=== PATIENT | female | born 1955 | race Caucasian/White ===

== ENCOUNTER → 2016-07-29 | Outpatient (CLI) | payer OTHER ==
[~2016-07-29] MED LIST: ALPRAZOLAM1 MG PO; AMPHETAMINE SAL PO; B COMPLEX1 CA1 PO; EC-NAPROSYN500 MG PO; EFFEXOR XR150 MG PO; FISH OIL 1,001000 M1 PO; HYDROCODONE PO; KLONOPIN PO; LEXAPRO PO; MEDROL PO; MOBIC PO; OMEPRAZOLE40 M1 PO; PRILOSEC PO; PRILOSEC20 M1 PO; ROBAXIN 750750 M1 DOB; STRATTERA40 MG DOB; TRAZODONE PO; TUDORZA PRESS400 MCG IH; VITAMIN B12-FO1 EACH PO; VITAMIN D2000 UNIT PO; VOLTAREN50 MG PO
--- NOTE | ~2016-07-29 | CR150 ---
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 Referring Physician: Kaylyn Anaya A.P.R.N. Ordering Physician: Kaylyn Anaya A.P.R.N. Primary Care Physician: Kaylyn Anaya A.P.R.N. MEDICAL IMAGING REPORT This report is preliminary unless electronic signature is present. EXAM Left hip 2 views 07/29/2016 HISTORY Left hip pain for 2 weeks with no known injury. FINDINGS AP and oblique examination of the hip shows adequate mineralization of the bones and a normal anatomic relationship of the femoral head with the acetabulum. There are no hypertrophic changes, fractures, dislocation, or joint capsular distension. No radiopaque foreign body is present about the soft tissues of the hip. IMPRESSION Normal hip. Dictated by... Trevor Leyva M.D. THIS IS AN ELECTRONICALLY VERIFIED REPORT Trevor Leyva M.D. at 07/31/2016 8:02 AM OJ/lolita TD: 07/30/2016 08:34 JOB #: [id number] MEDICAL IMAGING REPORT Page 1 of 1
--- NOTE | ~2016-07-29 | US140 ---
[facility] A Service of 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 Referring Physician: Kaylyn Anaya A.P.R.N. Ordering Physician: Kaylyn Anaya A.P.R.N. Primary Care Physician: Kaylyn Anaya A.P.R.N. MEDICAL IMAGING REPORT This report is preliminary unless electronic signature is present. EXAM Left lower extremity venous duplex, 07/29/2016 HISTORY Left leg pain and tenderness for 3 weeks. No known injury. Evaluate for deep vein thrombosis. TECHNIQUE Venous ultrasound examination of the left lower extremity was performed using grayscale, spectral Doppler and color flow Doppler imaging. FINDINGS The examination is negative. There is no evidence of left lower extremity deep venous thrombus from the groin to the lower calf. Visualized greater saphenous vein is also patent. IMPRESSION Negative examination. No evidence of left lower extremity deep venous thrombosis. Dictated by... Trevor Leyva M.D. THIS IS AN ELECTRONICALLY VERIFIED REPORT Trevor Leyva M.D. at 07/30/2016 8:01 AM OJ/angus TD: 07/29/2016 22:30 JOB #: [id number] [facility] A Service of [facility] RADIOLOGY TEXT RESULTS PATIENT: GOLD HARO LOCATION: SNIV : 57 UNIT #: [id number] AGE: [address]: Kaylyn Anaya SEX: F ORDER DR: MEDICAL IMAGING REPORT Page 1 of 1
--- NOTE | ~2016-07-29 | CR58 ---
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 Referring Physician: Kaylyn Anaya A.P.R.N. Ordering Physician: Kaylyn Anaya A.P.R.N. Primary Care Physician: Kaylyn Anaya A.P.R.N. MEDICAL IMAGING REPORT This report is preliminary unless electronic signature is present. EXAM Cervical spine 5 views 07/29/2016 HISTORY Neck pain left side for 2 weeks with no known injury. FINDINGS 5 views of the cervical spine demonstrate no fracture. There is post surgical or congenital fusion of the C5 and C6 vertebral bodies. There is 2 mm anterolisthesis of C4 on C5. There is degenerative change with moderate disc space narrowing at C6-7 with anterior and posterior osteophytes at the C6-7 level and there is degenerative change involving the articular facets. There is no retropharyngeal soft tissue swelling. IMPRESSION 1. Fusion of the C5 and C6 vertebral bodies which is either congenital or postsurgical in nature. Correlation with patient history is suggested. 2. Degenerative changes as noted above. Note is made of 2 mm anterolisthesis of C4 on C5 which is likely due to facet arthropathy. No acute abnormality is seen in the cervical spine. Dictated by... Trevor Leyva M.D. THIS IS AN ELECTRONICALLY VERIFIED REPORT Trevor Leyva M.D. at 07/31/2016 8:02 AM OJ/lolita TD: 07/30/2016 08:30 JOB #: [id number] [facility] A Service of [facility] & [facility] RADIOLOGY TEXT RESULTS PATIENT: GOLD HARO LOCATION: SNIV : 57 UNIT #: [id number] AGE: [address]: Kaylyn Anaya SEX: F ORDER DR: MEDICAL IMAGING REPORT Page 1 of 1
== END | disposition home or self-care (01) ==
LOC: SNIV 14:30
DX: M54.2 Cervicalgia (principal); M25.552 Pain in left hip; M48.02 Spinal stenosis, cervical region; M47.812 Spondylosis without myelopathy or radiculopathy, cervical region
CPT/HCPCS: 72040; 73502; 93971